=== PATIENT | male | born 1960 | race African-American/Black ===

== ENCOUNTER 2021-07-24 15:50 | Emergency (ER) | payer OTHER ==
[~2021-07-24] VITALS: Ht 177.8 cm; Wt 105.0 kg
[2021-07-24] MEDS ORDERED: fentaNYL PF VIAL 100 MCG/2 ML VIAL IV PRN (16:30)
[2021-07-24 16:46] LABS: BASO % 1 % (0-3); EOS # 0.1 x10^3/uL (0.0-0.7); EOS % 2 % (0-3); HEMATOCRIT 41.9 % (39.0-53.0); HEMOGLOBIN 14.6 g/dL (13.0-17.5); LYMPH # 1.3 x10^3/uL (1.0-4.8); LYMPH % 24 % (24-48); MEAN CORPUSCULAR HEMOGLOBIN 29 pg (25-35); MEAN CORPUSCULAR HGB CONC 35 g/dL (31-37); MEAN CORPUSCULAR VOLUME 83 fL (79-100); MONO # 0.4 x10^3/uL (0.0-1.1); MONO % 8 % (0-9); NEUT # 3.5 x10^3/uL (1.8-7.7); NEUT % 66 % (31-73); PLATELET COUNT 169 x10^3/uL (140-400); RED BLOOD COUNT 5.03 x10^6/uL (4.30-5.70); RED CELL DISTRIBUTION WIDTH 13.7 % (11.5-14.5); WHITE BLOOD COUNT 5.3 x10^3/uL (4.0-11.0)
[2021-07-24 17:11] LABS: ALBUMIN 3.7 g/dL (3.4-5.0); CALCIUM 9.1 mg/dL (8.5-10.1); GFR 91.9; MAGNESIUM 1.6 mg/dL (1.8-2.4); POTASSIUM 3.7 mmol/L (3.5-5.1); TOTAL BILIRUBIN 0.4 mg/dL (0.2-1.0); TOTAL PROTEIN 7.4 g/dL (6.4-8.2)
--- NOTE | 2021-07-24 17:56 | RAD ---
INDICATION: Reason: SOA / Spl. Instructions: / History: COMPARISON: None. FINDINGS: Single view of chest obtained. Cardiac silhouette is unremarkable. No definite focal airspace consolidation or pulmonary edema. IMPRESSION: * No definite focal airspace consolidation. Electronically signed by: Cade Stauffer MD (07/24/2021 5:54 PM) [id number]
--- NOTE | 2021-07-24 18:24 | EKG ---
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
[2021-07-24] MEDS ORDERED: CONTRAST GIVEN. MC PRN (18:45)
[2021-07-24] MEDS ORDERED: IOHEXOL 350 MG/ML 100 ML VIAL. IV ONE (19:00)
[2021-07-24] MEDS ORDERED: LABETALOL 20 MG/4 ML DISP.SYRIN. IVP ONE (19:15)
--- NOTE | 2021-07-24 19:34 | RAD ---
CTA CHEST History: Shortness of breath. Technique: CT of the chest was performed with intravenous contrast. PE protocol. Maximum intensity pr ojection coronal and sagittal reconstructions were performed. Exposure: One or more of the following individualized dose reduction techniques were utilized for thi s examination: 1. Automated exposure control 2. Adjustment of the mA and/or kV according to patient size 3. Use of iterative reconstruction technique. Comparison: None Findings: Chest: No pulmonary embolism. No aortic aneurysm or dissection. No consolidation or pleural effusion. No pneumothorax. Posterior dependent bilateral lower lobe linear atelectasis. Mild pulmonary emphyse ma. Upper abdomen: Partially imaged right posterior hepatic cyst measures 3.9 cm. Bones: No pathologic osseous lesions. Impression: 1. No acute thoracic pathology. Electronically signed by: Jimi Rodriguez DO (07/24/2021 7:32 PM) [facility]
--- NOTE | 2021-07-24 20:18 | PHYS DOC ---
Past Medical History Past Medical History: No Pertinent History, Hypertension Additional Past Medical Histor: ED (NYDIA VENTURA [employer]TER) Past Surgical History: Other Additional Past Surgical Histo: KNEE SX (NYDIA VENTURA [employer]) Smoking Status: Never Smoker Alcohol Use: None Drug Use: None (NYDIA VENTURA [employer]) General Adult EDM: Chief Complaint: SHORTNESS OF BREATH HPI: HPI: Patient is a 61 year old male with a history of hypertension not on any medicines who presents to the ED today complaining of shortness of breath. Initially patient had reported chest pain when he checked into the ED and this got him a room quicker. He changed the story and states he has shortness of breath only no chest pain. 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 He states he decided to come to the ED to be evaluated. Patient denies any fever, coughing or congestion. Reports receiving Covid vaccine (NYDIA VENTURA Raffy [employer]TER) Review of Systems: Review of Systems: Constitutional: Denies fever or chills. [] Eyes: Denies change in visual acuity. [] HENT: Denies nasal congestion or sore throat. [] Respiratory: Reports shortness of breath, denies coughing Cardiovascular: Denies chest pain or edema. [] GI: Denies abdominal pain, nausea, vomiting, bloody stools or diarrhea. [] : Denies dysuria. [] Musculoskeletal: Denies back pain or joint pain. [] Integument: Denies rash. [] Neurologic: Denies headache, focal weakness or sensory changes. [] Psychiatric: Denies depression or anxiety. [] (NYDIA VENTURA Raffy [employer]TER) Heart Score: C/O Chest Pain: N/A Risk Factors: Risk Factors: DM, Current or recent (<one month) smoker, HTN, HLP, family history of CAD, obesity. Risk Scores: Score 0 - 3: 2.5% MACE over next 6 weeks - Discharge Home Score 4 - 6: 20.3% MACE over next 6 weeks - Admit for Clinical Observation Score 7 - 10: 72.7% MACE over next 6 weeks - Early Invasive Strategies (AUDREYNYDAI Raffy [employer]TER) Current Medications: Current Medications Medications (Trade) Dose Ordered Sig/Que Start Time Stop Time Status Last Admin Dose Admin Fentanyl Citrate (Fentanyl 2ml Vial) 50 mcg PRN Q15MIN PRN 07/24/21 16:30 07/25/21 16:29 Info (CONTRAST GIVEN -- Rx MONITORING) 1 each PRN DAILY PRN 07/24/21 18:45 07/26/21 18:44 Iohexol (Omnipaque 350 Mg/ml) 100 ml 1X ONCE 07/24/21 19:00 07/24/21 19:01 DC 07/24/21 18:45 100 ML Labetalol HCl (Normodyne Iv Push) 10 mg 1X ONCE 07/24/21 19:15 07/24/21 19:16 DC (NYDIA VENTURA [employer]TER) Allergies: Allergies: Allergies Coded Allergies Type Severity Reaction Last Updated Verified No Known Drug Allergies 07/07/14 No (NYDIA VENTURA [employer]TER) Physical Exam: PE: Constitutional: Well developed, well nourished, no acute distress, non-toxic appearance. [] HENT: Normocephalic, atraumatic, bilateral external ears normal, oropharynx moist, no oral exudates, nose normal. [] Eyes: PERRLA, EOMI, conjunctiva normal, no discharge. [] Neck: Normal range of motion, no tenderness, supple, no stridor. [] Cardiovascular: Tachycardic Lungs & Thorax: Bilateral breath sounds clear to auscultation [] Abdomen: Bowel sounds normal, soft, no tenderness, no masses, no pulsatile masses. [] Skin: Warm, dry, no erythema, no rash. [] Back: No tenderness, no CVA tenderness. [] Extremities: No tenderness, no cyanosis, no clubbing, ROM intact, no edema. [] Neurologic: Alert and oriented X 3, normal motor function, normal sensory function, no focal deficits noted. [] Psychologic: Affect normal, judgement normal, mood normal. [] (NYDIA VENTURA [employer]) Current Patient Data: Labs: Laboratory Tests Test 07/24/21 16:22 07/24/21 18:08 White Blood Count 5.3 x10^3/uL (4.0-11.0) Red Blood Count 5.03 x10^6/uL (4.30-5.70) Hemoglobin 14.6 g/dL (13.0-17.5) Hematocrit 41.9 % (39.0-53.0) Mean Corpuscular Volume 83 fL (79-100) Mean Corpuscular Hemoglobin 29 pg (25-35) Mean Corpuscular Hemoglobin Concent 35 g/dL (31-37) Red Cell Distribution Width 13.7 % (11.5-14.5) Platelet Count 169 x10^3/uL (140-400) Neutrophils (%) (Auto) 66 % (31-73) Lymphocytes (%) (Auto) 24 % (24-48) Monocytes (%) (Auto) 8 % (0-9) Eosinophils (%) (Auto) 2 % (0-3) Basophils (%) (Auto) 1 % (0-3) Neutrophils # (Auto) 3.5 x10^3/uL (1.8-7.7) Lymphocytes # (Auto) 1.3 x10^3/uL (1.0-4.8) Monocytes # (Auto) 0.4 x10^3/uL (0.0-1.1) Eosinophils # (Auto) 0.1 x10^3/uL (0.0-0.7) Basophils # (Auto) 0.0 x10^3/uL (0.0-0.2) Sodium Level 143 mmol/L (136-145) Potassium Level 3.7 mmol/L (3.5-5.1) Chloride Level 106 mmol/L (98-107) Carbon Dioxide Level 28 mmol/L (21-32) Anion Gap 9 (6-14) Blood Urea Nitrogen 16 mg/dL (8-26) Creatinine 1.0 mg/dL (0.7-1.3) Estimated GFR (Cockcroft-Gault) 91.9 BUN/Creatinine Ratio 16 (6-20) Glucose Level 131 mg/dL (70-99) H Calcium Level 9.1 mg/dL (8.5-10.1) Magnesium Level 1.6 mg/dL (1.8-2.4) L Total Bilirubin 0.4 mg/dL (0.2-1.0) Aspartate Amino Transferase (AST) 20 U/L (15-37) Alanine Aminotransferase (ALT) 44 U/L (16-63) Alkaline Phosphatase 87 U/L (46-116) Troponin I Quantitative < 0.017 ng/mL (0.000-0.055) NS-Dzn-Q-Type Natriuretic Peptide 13 pg/mL (0-124) Total Protein 7.4 g/dL (6.4-8.2) Albumin 3.7 g/dL (3.4-5.0) Albumin/Globulin Ratio 1.0 (1.0-1.7) Thyroid Stimulating Hormone (TSH) 1.174 uIU/mL (0.358-3.74) SARS-CoV-2 Antigen (Rapid) Negative (NEGATIVE) Laboratory Tests 07/24/21 16:22 Laboratory Tests 07/24/21 16:22 Vital Signs: Vital Signs Date Time Temp Pulse Resp B/P (MAP) Pulse Ox O2 Delivery O2 Flow Rate FiO2 07/24/21 16:24 99 16 186/86 (119) 95 Room Air ([facility]NYDIA [facility]) EKG: EK interpreted by Dr. Londono sinus tachycardia heart rate 101 no STEMI [] [facility] Radiology/Procedures: Radiology/Procedures: []PROCEDURE: CT ANGIOGRAPHY CHEST CTA CHEST History: Shortness of breath. Technique: CT of the chest was performed with intravenous contrast. PE protocol. Maximum intensity projection coronal and sagittal reconstructions were performed. Exposure: One or more of the following individualized dose reduction techniques were utilized for this examination: 1. Automated exposure control 2. Adjustment of the mA and/or kV according to patient size 3. Use of iterative reconstruction technique. Comparison: None Findings: Chest: No pulmonary embolism. No aortic aneurysm or dissection. No consolidation or pleural effusion. No pneumothorax. Posterior dependent bilateral lower lobe linear atelectasis. Mild pulmonary emphysema. Upper abdomen: Partially imaged right posterior hepatic cyst measures 3.9 cm. Bones: No pathologic osseous lesions. Impression: 1. No acute thoracic pathology. Electronically signed by: Jimi Rodriguez DO (07/24/2021 7:32 PM) [facility] DICTATED and SIGNED BY: JIMI RODRIGUEZ DO DATE: 07/24/[id number] 0 PROCEDURE: PORTABLE CHEST 1V INDICATION: Reason: SOA / Spl. Instructions: / History: COMPARISON: None. FINDINGS: Single view of chest obtained. Cardiac silhouette is unremarkable. No definite focal airspace consolidation or pulmonary edema. IMPRESSION: * No definite focal airspace consolidation. Electronically signed by: Esteban Ray MD (07/24/2021 5:54 PM) [id number] DICTATED and SIGNED BY: ESTEBAN RAY MD DATE: 07/24/21 [id number] 0 (NYDIA VENTURA APRN) Course & Med Decision Making: Course & Med Decision Making Pertinent Labs and Imaging studies reviewed. (See chart for details) This is a 61-year-old male patient presented to the ED today complaining of shortness of breath that occurred at work while moving around. Patient denies any shortness of breath on arrival to the ED. Vitals on arrival to the ED temperature was normal but not documented because of IT issues. Heart rate 99, respirations 16 on room air, blood pressure 186/86, O2 sats 95% on room air. Patient reports history of hypertension and not on any medications. He states his PCP had recommended he start his blood pressure medicine but he requested to be allowed to wait. CBC with no acute findings, CMP with magnesium of 1.6 otherwise no acute findings. Negative rapid Covid test CTA chest is negative. Patient was given labetalol in the ED, blood pressure has come down in the 160s over 70s. He is requesting to be discharged at home. He states his PCP's nurse called him to try and schedule an appointment for him but he was in the ED. He states he will call the PCP tomorrow and be seen as soon as possible and hopefully be put on blood pressure medicine. He is a symptomatic in the ED able to get up and move with no issues. He was provided return precautions and discharged in stable condition (NYDIA VENTURA APRN) Course & Med Decision Making I have reviewed and was available for consultation in the emergency department for this patient that was seen by midlevel provider. Agree with plan. Vital Signs Date Time Temp Pulse Resp B/P (MAP) Pulse Ox O2 Delivery O2 Flow Rate FiO2 07/24/21 20:23 68 144/80 (101) 94 Room Air 07/24/21 20:12 64 169/79 07/24/21 19:53 64 169/79 (109) 96 Room Air 07/24/21 18:53 73 206/83 (124) 95 Room Air 07/24/21 18:21 76 183/88 (119) 95 Room Air 07/24/21 17:21 88 175/85 (115) 94 Room Air 07/24/21 16:24 98.4 99 16 186/86 (119) 95 Room Air 98.4 Aram Brink DO (ARAM BRINK DO) Delfino Disclaimer: Delfino Disclaimer: This electronic medical record was generated, in whole or in part, using a voice recognition dictation system. (NYDIA VENTURA APRN) Departure Departure Impression: Primary Impression: Person under investigation for COVID-19 Additional Impressions: Shortness of breath Elevated blood pressure reading Disposition: HOME / SELF CARE / HOMELESS Condition: STABLE Referrals: NO PCP (PCP) Follow-up tomorrow Patient Instructions: Hypertension, Shortness of Breath, [id number] Additional Instructions: You were evaluated in the emergency room, your lab work was negative for any acute findings. Your rapid Covid test is negative. Your CT of the chest is negative for any acute findings. Your blood pressure was running high 186/86 with a heart rate of 99 when you came to the ED. You were given labetalol. Your blood pressure came down. Please follow-up with your primary care doctor tomorrow and you can discuss blood pressure medicine/management. Come back to the ED at any point symptoms worsen NYDIA VENTURA APRN Jul 24, 2021 20:18 ARAM BRINK DO Jul 24, 2021 23:00
[2021-07-24 20:23] VITALS: BP 144/80
--- NOTE | 2021-07-25 17:27 | NUR ---
IP: Attempted to contact pt concerning covid results. No answer, left a voicemail to return the call.
--- NOTE | 2021-07-26 12:14 | NUR ---
IP: Attempted a second tome to contact pt concerning covid results. No answer, left a voicemail to return the call.
== END 2021-07-24 20:48 | disposition home or self-care (01) ==
LOC: ER 15:50
DX: I10 Essential (primary) hypertension (principal); R06.02 Shortness of breath; Z20.822 Contact with and (suspected) exposure to COVID-19
CPT/HCPCS: 36415; 71045; 71275; 80053; 83735; 83880; 84443; 84484; 85025; 87426; 93005; 96374; 99285; J3490; Q9967; U0003; U0005